=== PATIENT | female | born 1955 | race Caucasian/White ===

== ENCOUNTER 2017-10-26 09:28 | Emergency (ER) | payer BC, MEDICARE ==
[2017-10-26] MEDS ORDERED: PREDNISONE 20 MG TABLET PO ONE (10:54)
[2017-10-26] MEDS ORDERED: IPRATROPIUM/ALBUTEROL 0.5-2.5 MG/3 ML AMPUL NEB ONE (10:54)
--- NOTE | 2017-10-26 11:24 | RADIOLOGY REPORT (SQ) ---
EXAM DESCRIPTION: CHEST PA/LAT COMPLETED DATE/TIME: 10/26/2017 11:14 am REASON FOR STUDY: sob COMPARISON: None. TECHNIQUE: Frontal and lateral radiographic views of the chest acquired. NUMBER OF VIEWS: Two view. LIMITATIONS: None. FINDINGS: LUNGS AND PLEURA: Mildly hyperinflated with flattening of the hemidiaphragms. Suspect und erlying COPD. Accentuated by pectus carinatum. Lungs are clear. MEDIASTINUM AND HILAR STRUCTURES: No masses or contour abnormalities. HEART AND VASCULAR STRUCTURES: Heart normal size. No evidence for failure. BONES: No acute findings. HARDWARE: None in the chest. OTHER: No other significant finding. IMPRESSION: Findings suggesting COPD. No acute cardiopulmonary disease. TECHNICAL DOCUMENTATION: JOB ID: [id number] [employer]- All Rights Reserved
[2017-10-26] MEDS ORDERED: AZITHROMYCIN 250 MG TABLET PO ONE (11:31)
[2017-10-26] MEDS ORDERED: ALBUTEROL SULFATE HFA (90 MCG/PUFF) 8 GM MDI (1 MDI/ER DISP) IH ONE (11:33)
--- NOTE | 2017-10-26 11:43 | ER Document Report ---
ED General - General Chief Complaint: Sore Throat Stated Complaint: FEVER,COUGH,CONGESTION Time Seen by Provider: 10/26/17 10:54 TRAVEL OUTSIDE OF THE [place] IN LAST 30 DAYS: No - HPI Patient complains to provider of: Shortness of breath cough congestion Notes: 2 3 days of cough congestion sore throat nasal drainage. Patient is a smoker patient continued states continues to smoke. Has not tried any medications at home denies any recent travel or antibiotics. Patient upon my evaluation resting comfortably no other complaints denies chest pain abdominal pain nausea vomiting diarrhea. Patient looks to be no obvious distress upon my evaluation. Patient is here with with similar symptoms - Related Data Allergies/Adverse Reactions: No Known Allergies Allergy (Verified 10/26/17 09:35) Past Medical History - Social History Smoking Status: Current Every Day Smoker Chew tobacco use (# tins/day): No Frequency of alcohol use: Occasional Drug Abuse: None Family History: None Patient has suicidal ideation: No Patient has homicidal ideation: No - Past Medical History Cardiac Medical History: Reports: Hx Hypercholesterolemia Renal/ Medical History: Denies: Hx Peritoneal Dialysis Musculoskeltal Medical History: Reports Hx Arthritis - RA Review of Systems - Review of Systems Constitutional: No symptoms reported EENT: Throat pain Cardiovascular: No symptoms reported Respiratory: Cough, Short of breath, Sputum, Wheezing Gastrointestinal: No symptoms reported Genitourinary: No symptoms reported Female Genitourinary: No symptoms reported Musculoskeletal: No symptoms reported Skin: No symptoms reported Hematologic/Lymphatic: No symptoms reported Neurological/Psychological: No symptoms reported -: Yes All other systems reviewed and negative Physical Exam - Vital signs Vitals: Temp Pulse Resp BP Pulse Ox 97.8 F 88 16 145/76 H 98 10/26/17 09:32 10/26/17 09:32 10/26/17 09:32 10/26/17 09:32 10/26/17 09:32 Interpretation: Normal - General General appearance: Appears well, Alert - HEENT Head: Normocephalic, Atraumatic Eyes: Normal Pupils: PERRL - Respiratory Respiratory status: No respiratory distress Chest status: Nontender Breath sounds: Wheezing Chest palpation: Normal - Cardiovascular Rhythm: Regular Heart sounds: Normal auscultation Murmur: No - Abdominal Inspection: Normal Distension: No distension Bowel sounds: Normal Tenderness: Nontender Organomegaly: No organomegaly - Back Back: Normal, Nontender - Extremities General upper extremity: Normal inspection, Nontender, Normal color, Normal ROM , Normal temperature General lower extremity: Normal inspection, Nontender, Normal color, Normal ROM , Normal temperature, Normal weight bearing. No: José Antonio's sign - Neurological Neuro grossly intact: Yes Cognition: Normal Orientation: AAOx4 [place] Coma Scale Eye Opening: Spontaneous [place] Coma Scale Verbal: Oriented [place] Coma Scale Motor: Obeys Commands [place] Coma Scale Total: 15 Speech: Normal Motor strength normal: LUE, RUE, LLE, RLE Sensory: Normal - Psychological Associated symptoms: Normal affect, Normal mood - Skin Skin Temperature: Warm Skin Moisture: Dry Skin Color: Normal Course - Re-evaluation Re-evalutation: 10/26/17 12:26 Chest x-ray is negative patient sounds better and feels better after breathing treatment. More likely underlying bronchitis patient was educated to stop smoking. Patient will be treated with steroids bronchodilators and Zithromax. Patient is to follow-up with her primary care physician. - Vital Signs Vital signs: Temp Pulse Resp BP Pulse Ox 97.8 F 88 16 145/76 H 98 10/26/17 09:32 10/26/17 09:32 10/26/17 09:32 10/26/17 09:32 10/26/17 09:32 Discharge - Discharge Clinical Impression: Bronchitis, Tobacco use Condition: Good Disposition: HOME, SELF-CARE Instructions: Bronchitis ([facility]) Additional Instructions: Your chest x-ray does not show any signs of pneumonia. More likely your condition is due to underlying bronchitis please take medications as prescribed please stop smoking return to the ER for concerning issues. Prescriptions: Albuterol Sulfate [Proair HFA Inhalation Aerosol 8.5 gm MDI] 2 puff IH Q4H PRN # 1 mdi PRN Reason: Azithromycin [Zithromax 250 mg Tablet] 250 mg PO DAILY #4 tablet Prednisone [Deltasone] 60 mg PO DAILY #24 tablet Forms: Smoking Cessation Education, Return to Work
[2017-10-26 11:49] VITALS: BP 143/74
== END 2017-10-26 11:46 | disposition home or self-care (01) ==
LOC: ER 09:28
DX: J40 Bronchitis, not specified as acute or chronic (principal); R06.02 Shortness of breath; R50.9 Fever, unspecified; F17.200 Nicotine dependence, unspecified, uncomplicated
CPT/HCPCS: 94640; 99283; 71020; A9270 ×3; J3490; J7512; J7620